=== PATIENT | female | born 1985 | race African-American/Black ===

== ENCOUNTER 2021-06-02 05:47 | Emergency (ER) | payer MEDICAID ==
[~2021-06-02] VITALS: Ht 144.8 cm; Wt 75.0 kg
[~2021-06-02 05:47] MED LIST: CLON-595 PO; DIVA125T32 PO; OXYC-490 PO; PARO10TA89 PO; PHEN20EL7 PO; RISP0.252 PO
[2021-06-02] MEDS ORDERED: PHENOBARBITAL 30 MG/7.5 ML PO ONE (07:30)
[2021-06-02] MEDS ORDERED: CEPHALEXIN MONOHYDRATE 250 MG/5 ML SUSPENSION ORAL.SYG PO ONE (07:30)
[2021-06-02] MEDS ORDERED: CEPH250S56 PO (07:31)
[2021-06-02] MEDS ORDERED: OXYC-708 PO (07:34)
[2021-06-02 08:04] VITALS: BP 151/98
== END 2021-06-02 08:13 | disposition home or self-care (01) ==
LOC: EMS 05:49
DX: R45.1 Restlessness and agitation (principal); F84.0 Autistic disorder; N39.0 Urinary tract infection, site not specified; Z86.69 Personal history of other diseases of the nervous system and sense organs; Z88.0 Allergy status to penicillin; Z88.1 Allergy status to other antibiotic agents
CPT/HCPCS: 99283

== ENCOUNTER 2022-06-24 18:38 | Emergency (ER) | payer OTHER ==
[~2022-06-24] VITALS: Ht 144.8 cm; Wt 62.7 kg
[~2022-06-24 18:38] MED LIST changes: +CEPH250S56 PO; +OXYC-708 PO
[2022-06-24] MEDS ORDERED: PANT-31 PO (18:52)
[2022-06-24] MEDS ORDERED: KETOROLAC TROMETHAMINE 30 MG/ML VIAL IM ONE (19:30)
[2022-06-24] MEDS ORDERED: PHEN20EL10 PO (19:36)
[2022-06-24] MEDS ORDERED: MIDAZOLAM HCL 2 MG/2 ML VIAL IM ONE (20:15)
[2022-06-24] MEDS ORDERED: MIDAZOLAM HCL 5 MG/ML VIAL IM ONE (21:00)
[2022-06-24 23:01] LABS: BASOPHILS % (AUTO) 0.2 % (0.0-2.0); EOSINOPHILS % (AUTO) 4.4 % (1.0-6.0); HEMATOCRIT 26.2 % (36-46); HEMOGLOBIN 7.9 g/dL (12.0-16.0); LYMPHOCYTES # (AUTO) 1.8 K/uL (1.0-4.8); LYMPHOCYTES % (AUTO) 25.4 % (22.0-44.0); MEAN CORPUSCULAR HEMOGLOBIN 22.7 pg (26.0-34.0); MEAN CORPUSCULAR HGB CONC 30.3 G/dL (31.0-37.0); MEAN CORPUSCULAR VOLUME 75 fL (80-100); MONOCYTES # (AUTO) 0.4 K/uL (0.1-1.0); MONOCYTES % (AUTO) 6.1 % (2.0-9.0); NEUTROPHILS # (AUTO) 4.6 K/uL (1.8-7.7); NEUTROPHILS % (AUTO) 63.9 % (40.0-70.0); PLATELET COUNT (AUTO) 277 K/uL (150-450); RED CELL DISTRIBUTION WIDTH 19.7 % (11.5-14.5)
[2022-06-24 23:10] LABS: ANION GAP 9 mmol/L (8-16); CALCIUM, TOTAL 8.7 mg/dL (8.8-10.5); CARBON DIOXIDE 26 mmol/L (22-29); CHLORIDE 101 mmol/L (98-107); CREATININE 0.59 mg/dL (0.60-1.30); GLOMERULAR FILTR. RATE CALC > 60 mL/min (>60); GLUCOSE,RANDOM 102 mg/dL (70-110); POTASSIUM 3.3 mmol/L (3.5-5.1); SODIUM SERUM 136 mmol/L (136-145)
[2022-06-24 23:16] LABS: ALANINE AMINOTRANSFERASE 17 U/L (12-78); ALBUMIN 3.1 g/dL (3.4-5.0); ALKALINE PHOSPHATASE 220 U/L (46-116); ASPARTATE AMINOTRANSFERASE 19 U/L (15-37); BILIRUBIN,TOTAL 0.2 mg/dL (0.1-1.0); LIPASE 76 U/L (73-393); TOTAL PROTEIN, SERUM 7.7 g/dL (6.4-8.2)
[2022-06-25 00:07] VITALS: BP 0/0
== END 2022-06-25 00:07 | disposition home or self-care (01) ==
LOC: EMS 18:39
DX: N83.202 Unspecified ovarian cyst, left side (principal); D64.9 Anemia, unspecified; D25.9 Leiomyoma of uterus, unspecified; F84.0 Autistic disorder; Z98.890 Other specified postprocedural states; Z88.0 Allergy status to penicillin; Z88.1 Allergy status to other antibiotic agents; Z88.8 Allergy status to other drugs, medicaments and biological substances
CPT/HCPCS: 99285; 76856; 80053; 80184; 83690; 85025; 86850; 86900; 86901; 36415; 74022; 96372; J1885; J2250 ×2

== ENCOUNTER 2022-09-03 06:37 | Emergency (ER) | payer OTHER ==
[~2022-09-03] VITALS: Ht 144.8 cm; Wt 63.6 kg
[~2022-09-03 06:37] MED LIST changes: -CEPH250S56 PO; -DIVA125T32 PO; -OXYC-490 PO; -OXYC-708 PO; +PANT-31 PO; -PARO10TA89 PO; +PHEN20EL24 PO; -PHEN20EL7 PO; -RISP0.252 PO
[2022-09-03 06:51] VITALS: TEMP 98.2
[2022-09-03 10:06] LABS: BASOPHILS % (AUTO) 0.4 % (0.0-2.0); EOSINOPHILS % (AUTO) 2.4 % (1.0-6.0); HEMATOCRIT 37.7 % (36-46); HEMOGLOBIN 11.4 g/dL (12.0-16.0); LYMPHOCYTES # (AUTO) 3.6 K/uL (1.0-4.8); LYMPHOCYTES % (AUTO) 34.2 % (22.0-44.0); MEAN CORPUSCULAR HEMOGLOBIN 26.1 pg (26.0-34.0); MEAN CORPUSCULAR HGB CONC 30.3 G/dL (31.0-37.0); MEAN CORPUSCULAR VOLUME 86 fL (80-100); MONOCYTES # (AUTO) 0.7 K/uL (0.1-1.0); MONOCYTES % (AUTO) 6.2 % (2.0-9.0); NEUTROPHILS % (AUTO) 56.8 % (40.0-70.0); PLATELET COUNT (AUTO) 299 K/uL (150-450); RED BLOOD CELL COUNT(AUTO) 4.37 MIL/uL (4.00-5.20); RED CELL DISTRIBUTION WIDTH 28.8 % (11.5-14.5)
[2022-09-03 10:16] LABS: ANION GAP 16 mmol/L (8-16); CALCIUM, TOTAL 9.1 mg/dL (8.8-10.5); CARBON DIOXIDE 25 mmol/L (22-29); CHLORIDE 100 mmol/L (98-107); CREATININE 0.77 mg/dL (0.60-1.30); GLOMERULAR FILTR. RATE CALC > 60 mL/min (>60); GLUCOSE,RANDOM 103 mg/dL (70-110); POTASSIUM 4.9 mmol/L (3.5-5.1); SODIUM SERUM 141 mmol/L (136-145)
[2022-09-03 10:21] LABS: ALANINE AMINOTRANSFERASE 19 U/L (12-78); ALBUMIN 3.6 g/dL (3.4-5.0); ALKALINE PHOSPHATASE 244 U/L (46-116); ASPARTATE AMINOTRANSFERASE 30 U/L (15-37); BILIRUBIN,TOTAL 0.1 mg/dL (0.1-1.0); TOTAL PROTEIN, SERUM 8.3 g/dL (6.4-8.2)
[2022-09-03] MEDS ORDERED: DIPHENOXYLATE/ATROP 2.5-0.025 MG/5 ML ORAL.SYG LIQUID PO ONE (11:00)
[2022-09-03] MEDS ORDERED: GENTAMICIN SULFATE 0.3% OPHTHALMIC SOLUTION 5 ML OU ONE (11:00)
[2022-09-03 11:21] VITALS: BP 112/61; PULSE 92; RESP 20
== END 2022-09-03 11:24 | disposition home or self-care (01) ==
LOC: EMS 06:38
DX: N93.9 Abnormal uterine and vaginal bleeding, unspecified (principal); H10.9 Unspecified conjunctivitis; R19.7 Diarrhea, unspecified; F84.0 Autistic disorder; Z90.721 Acquired absence of ovaries, unilateral; Z98.890 Other specified postprocedural states; Z88.0 Allergy status to penicillin; Z88.1 Allergy status to other antibiotic agents
CPT/HCPCS: 80053; 85025; 99283

== ENCOUNTER 2022-10-18 05:01 | Emergency (ER) | payer OTHER ==
[~2022-10-18] VITALS: Ht 144.8 cm; Wt 63.6 kg
[2022-10-18 05:56] LABS: BASOPHILS % (AUTO) 0.4 % (0.0-2.0); EOSINOPHILS % (AUTO) 1.9 % (1.0-6.0); HEMOGLOBIN 12.8 g/dL (12.0-16.0); LYMPHOCYTES # (AUTO) 2.3 K/uL (1.0-4.8); LYMPHOCYTES % (AUTO) 24.6 % (22.0-44.0); MEAN CORPUSCULAR HGB CONC 32.8 G/dL (31.0-37.0); MEAN CORPUSCULAR VOLUME 92 fL (80-100); MONOCYTES # (AUTO) 0.5 K/uL (0.1-1.0); MONOCYTES % (AUTO) 5.5 % (2.0-9.0); NEUTROPHILS # (AUTO) 6.4 K/uL (1.8-7.7); NEUTROPHILS % (AUTO) 67.6 % (40.0-70.0); PLATELET COUNT (AUTO) 216 K/uL (150-450); RED BLOOD CELL COUNT(AUTO) 4.26 MIL/uL (4.00-5.20); RED CELL DISTRIBUTION WIDTH 17.7 % (11.5-14.5); WHITE BLOOD COUNT (AUTO) 9.4 K/uL (4.5-11.0)
[2022-10-18 06:07] LABS: ANION GAP 11 mmol/L (8-16); CARBON DIOXIDE 25 mmol/L (22-29); CHLORIDE 104 mmol/L (98-107); CREATININE 0.53 mg/dL (0.60-1.30); GLOMERULAR FILTR. RATE CALC > 60 mL/min (>60); GLUCOSE,RANDOM 94 mg/dL (70-110); POTASSIUM 3.7 mmol/L (3.5-5.1); SODIUM SERUM 140 mmol/L (136-145); UREA NITROGEN, BLOOD 12 mg/dL (7-18)
[2022-10-18 06:12] LABS: ALANINE AMINOTRANSFERASE 18 U/L (12-78); ALBUMIN 3.4 g/dL (3.4-5.0); ALKALINE PHOSPHATASE 265 U/L (46-116); ASPARTATE AMINOTRANSFERASE 23 U/L (15-37); BILIRUBIN,TOTAL 0.1 mg/dL (0.1-1.0); TOTAL PROTEIN, SERUM 7.9 g/dL (6.4-8.2)
[2022-10-18 06:17] LABS: RBC MORPHOLOGY COMMENT ABNORMAL RBC MORPH
[2022-10-18] MEDS ORDERED: LORazepam 2 MG/ML VIAL IM ONE ×2 (06:45→08:00)
[2022-10-18 08:15] VITALS: BP 160/99; PULSE 74; RESP 18
== END 2022-10-18 08:39 | disposition home or self-care (01) ==
LOC: EMS 05:03
DX: S59.902A Unspecified injury of left elbow, initial encounter (principal); N93.8 Other specified abnormal uterine and vaginal bleeding; F84.0 Autistic disorder; R45.1 Restlessness and agitation; R26.81 Unsteadiness on feet; Z98.890 Other specified postprocedural states; Z88.0 Allergy status to penicillin; Z88.1 Allergy status to other antibiotic agents; Z88.8 Allergy status to other drugs, medicaments and biological substances; X58.XXXA Exposure to other specified factors, initial encounter; Y93.89 Activity, other specified; Y92.89 Other specified places as the place of occurrence of the external cause; Y99.8 Other external cause status
CPT/HCPCS: 99285; 70450; 80053; 84703; 85025; 36415; 73080; 96372; J2060

== ENCOUNTER 2023-02-01 21:30 | Emergency (ER) | payer OTHER ==
[2023-02-02] MEDS ORDERED: MORP10SO3 PO (05:24)
== END 2023-02-02 00:23 | disposition left against medical advice (07) ==
LOC: EMS 21:32
DX: R56.9 Unspecified convulsions (principal); Z53.21 Procedure and treatment not carried out due to patient leaving prior to being seen by health care provider
CPT/HCPCS: 99281; Z7502

== ENCOUNTER 2023-02-02 05:10 | Emergency (ER) | payer OTHER ==
[2023-02-02] MEDS ORDERED: MORP10SO3 PO (05:24)
[2023-02-02] MEDS ORDERED: MORPHINE SULFATE 4 MG/ML SYRINGE IM ONE (09:30)
[2023-02-02] MEDS ORDERED: LORazepam 2 MG/ML VIAL IM ONE (09:30)
[2023-02-02 11:17] LABS: BASOPHILS % (AUTO) 0.3 % (0.0-2.0); EOSINOPHILS % (AUTO) 1.7 % (1.0-6.0); HEMATOCRIT 34.1 % (36-46); HEMOGLOBIN 11.3 g/dL (12.0-16.0); LYMPHOCYTES # (AUTO) 1.8 K/uL (1.0-4.8); LYMPHOCYTES % (AUTO) 26.4 % (22.0-44.0); MEAN CORPUSCULAR HEMOGLOBIN 31.1 pg (26.0-34.0); MEAN CORPUSCULAR HGB CONC 33.1 G/dL (31.0-37.0); MEAN CORPUSCULAR VOLUME 94 fL (80-100); MONOCYTES # (AUTO) 0.4 K/uL (0.1-1.0); NEUTROPHILS # (AUTO) 4.5 K/uL (1.8-7.7); NEUTROPHILS % (AUTO) 65.6 % (40.0-70.0); PLATELET COUNT (AUTO) 224 K/uL (150-450); RED BLOOD CELL COUNT(AUTO) 3.62 MIL/uL (4.00-5.20); RED CELL DISTRIBUTION WIDTH 14.1 % (11.5-14.5); WHITE BLOOD COUNT (AUTO) 6.9 K/uL (4.5-11.0)
[2023-02-02 11:29] LABS: ANION GAP 8 mmol/L (8-16); CALCIUM, TOTAL 8.9 mg/dL (8.8-10.5); CARBON DIOXIDE 26 mmol/L (22-29); CHLORIDE 107 mmol/L (98-107); CREATININE 0.51 mg/dL (0.60-1.30); GLOMERULAR FILTR. RATE CALC > 60 mL/min (>60); GLUCOSE,RANDOM 91 mg/dL (70-110); POTASSIUM 4.7 mmol/L (3.5-5.1); SODIUM SERUM 141 mmol/L (136-145); UREA NITROGEN, BLOOD 8 mg/dL (7-18)
[2023-02-02 11:42] LABS: ALCOHOL, BLOOD (SERUM) < 3 mg/dL (0-10)
[2023-02-02 11:43] LABS: ALANINE AMINOTRANSFERASE 97 U/L (12-78); ALBUMIN 3.4 g/dL (3.4-5.0); ALKALINE PHOSPHATASE 268 U/L (46-116); ASPARTATE AMINOTRANSFERASE 32 U/L (15-37); BILIRUBIN,TOTAL 0.1 mg/dL (0.1-1.0); TOTAL PROTEIN, SERUM 7.7 g/dL (6.4-8.2)
[2023-02-02] MEDS ORDERED: PB/HYOSCY/ATR/SCOP/LIDO/MAALOX 55 ML BOTTLE PO ONE (14:00)
== END 2023-02-02 14:38 | disposition home or self-care (01) ==
LOC: EMS 05:12
DX: K29.70 Gastritis, unspecified, without bleeding (principal); B96.89 Other specified bacterial agents as the cause of diseases classified elsewhere; Z90.721 Acquired absence of ovaries, unilateral; Z98.890 Other specified postprocedural states; Z88.0 Allergy status to penicillin; Z88.1 Allergy status to other antibiotic agents; Z88.8 Allergy status to other drugs, medicaments and biological substances
CPT/HCPCS: 99285; 76856; 80053; 85025; 74018; 96372; G0480; J2060; J2270

== ENCOUNTER 2023-02-05 06:30 | Emergency (ER) | payer MEDICAID, OTHER ==
[~2023-02-05] VITALS: Ht 144.8 cm; Wt 61.4 kg
[~2023-02-05 06:30] MED LIST changes: +MORP10SO3 PO
[2023-02-05] MEDS ORDERED: SUCRALFATE 1 GM/10 ML SUSPENSION UDCUP PO ONE (09:45)
[2023-02-05] MEDS ORDERED: DiphenhydrAMINE HCL 50 MG/ML VIAL IM ONE (09:45)
[2023-02-05] MEDS ORDERED: LIDOCAINE/PF 1% 2 ML VIAL IM ONE (09:45)
[2023-02-05] MEDS ORDERED: CefTRIAXone SODIUM 1 GM/VIAL IM ONE (09:45)
[2023-02-05] MEDS ORDERED: BACITRACIN 0.9 GM PACKET OINTMENT TP ONE (10:15)
[2023-02-05 10:57] VITALS: BP 122/56; PULSE 94; RESP 17
== END 2023-02-05 11:02 | disposition home or self-care (01) ==
LOC: EMS 06:31
DX: R10.13 Epigastric pain (principal); Z90.721 Acquired absence of ovaries, unilateral; Z98.890 Other specified postprocedural states; Z88.0 Allergy status to penicillin; Z88.1 Allergy status to other antibiotic agents; Z88.8 Allergy status to other drugs, medicaments and biological substances
CPT/HCPCS: 99284; 71045; 96372; J0696; J1200; J3490

== ENCOUNTER 2023-06-08 03:29 | Emergency (ER) | payer OTHER ==
[~2023-06-08] VITALS: Ht 144.8 cm; Wt 65.0 kg
[2023-06-08] MEDS: SODIUM CHLORIDE 0.9% 1,000 ML IV ONE (07:22)
[2023-06-08 07:27] LABS: BASOPHILS % (AUTO) 0.3 % (0.0-2.0); EOSINOPHILS % (AUTO) 2.1 % (1.0-6.0); HEMATOCRIT 32.1 % (36-46); HEMOGLOBIN 10.5 g/dL (12.0-16.0); LYMPHOCYTES # (AUTO) 2.4 K/uL (1.0-4.8); MEAN CORPUSCULAR HEMOGLOBIN 28.5 pg (26.0-34.0); MEAN CORPUSCULAR HGB CONC 32.8 G/dL (31.0-37.0); MEAN CORPUSCULAR VOLUME 87 fL (80-100); MONOCYTES # (AUTO) 0.5 K/uL (0.1-1.0); MONOCYTES % (AUTO) 6.5 % (2.0-9.0); NEUTROPHILS # (AUTO) 5.2 K/uL (1.8-7.7); NEUTROPHILS % (AUTO) 62.1 % (40.0-70.0); PLATELET COUNT (AUTO) 283 K/uL (150-450); RED CELL DISTRIBUTION WIDTH 13.4 % (11.5-14.5); WHITE BLOOD COUNT (AUTO) 8.3 K/uL (4.5-11.0)
[2023-06-08 07:32] LABS: ANION GAP 10 mmol/L (8-16); CALCIUM, TOTAL 8.7 mg/dL (8.8-10.5); CARBON DIOXIDE 25 mmol/L (22-29); CHLORIDE 103 mmol/L (98-107); CREATININE 0.64 mg/dL (0.60-1.30); GLOMERULAR FILTR. RATE CALC > 60 mL/min (>60); GLUCOSE,RANDOM 100 mg/dL (70-110); POTASSIUM 4.3 mmol/L (3.5-5.1); SODIUM SERUM 138 mmol/L (136-145); UREA NITROGEN, BLOOD 12 mg/dL (7-18)
[2023-06-08] MEDS: DiphenhydrAMINE HCL 50 MG/ML VIAL IVP ONE (07:40)
[2023-06-08] MEDS: MORPHINE SULFATE 2 MG/ML SYRINGE IVP ONE (07:41)
[2023-06-08 07:42] LABS: APPEARANCE,URINE CLEAR (CLEAR); BILIRUBIN,URINE NEGATIVE (NEGATIVE); COLOR,URINE LIGHT YELLOW (YELLOW); GLUCOSE, URINE (UA) NEGATIVE (NEGATIVE); KETONES,URINE NEGATIVE (NEGATIVE); LEUKOCYTE ESTERASE ,URINE NEGATIVE (NEGATIVE); NITRATE,URINE NEGATIVE (NEGATIVE); OCCULT BLOOD,URINE NEGATIVE (NEGATIVE); PROTEIN,URINE NEGATIVE (NEGATIVE); SPECIFIC GRAVITIY, URINE 1.019 (1.003-1.030); UROBILINOGEN,URINE <=1.0 mg/dL (<=1.0)
[2023-06-08 07:47] LABS: ALCOHOL, URINE DRUG SCREEN NEGATIVE (NEGATIVE); AMPHET/METH SCREEN,URINE NEGATIVE (NEGATIVE); BARBITURATE SCREEN, URINE POSITIVE (NEGATIVE); BENZODIAZEPINES SCREEN,URINE NEGATIVE (NEGATIVE); CANNABINOID SCREEN,URINE NEGATIVE (NEGATIVE); COCAINE SCREEN,URINE NEGATIVE (NEGATIVE); METHADONE SCREEN, URINE NEGATIVE (NEGATIVE); OPIATE SCREEN,URINE NEGATIVE (NEGATIVE); PHENCYCLIDINE SCREEN,URINE NEGATIVE (NEGATIVE)
[2023-06-08 07:59] LABS: ALANINE AMINOTRANSFERASE 23 U/L (12-78); ALBUMIN 3.4 g/dL (3.4-5.0); ALKALINE PHOSPHATASE 256 U/L (46-116); ASPARTATE AMINOTRANSFERASE 23 U/L (15-37); CREATINE KINASE, TOTAL ONLY 121 U/L (26-192); TOTAL PROTEIN, SERUM 7.9 g/dL (6.4-8.2)
[2023-06-08 08:00] LABS: BILIRUBIN,TOTAL 0.1 mg/dL (0.1-1.0)
[2023-06-08 08:39] VITALS: BP 122/77; PULSE 100; RESP 22; TEMP 97.6
== END 2023-06-08 09:21 | disposition home or self-care (01) ==
LOC: EMS 03:30
DX: R45.1 Restlessness and agitation (principal); F84.0 Autistic disorder; R62.50 Unspecified lack of expected normal physiological development in childhood; K59.00 Constipation, unspecified; D64.9 Anemia, unspecified; R56.9 Unspecified convulsions; J18.9 Pneumonia, unspecified organism; Z88.0 Allergy status to penicillin; Z88.1 Allergy status to other antibiotic agents
CPT/HCPCS: 99284; 96374; 96361; 96375; 80053; 80184; 81003; 82550; 85025; 36415; 80307; J1200; J2270; 51701

== ENCOUNTER 2024-05-30 05:59 | Emergency (ER) | payer OTHER ==
[~2024-05-30] VITALS: Ht 144.8 cm; Wt 65.6 kg
[2024-05-30 06:21] VITALS: TEMP 98.2
[2024-05-30 06:59] LABS: BASOPHILS % (AUTO) 0.2 % (0.0-2.0); EOSINOPHILS % (AUTO) 0.8 % (1.0-6.0); HEMATOCRIT 32.1 % (36-46); HEMOGLOBIN 10.2 g/dL (12.0-16.0); LYMPHOCYTES # (AUTO) 1.6 K/uL (1.0-4.8); LYMPHOCYTES % (AUTO) 24.9 % (22.0-44.0); MEAN CORPUSCULAR HEMOGLOBIN 28.1 pg (26.0-34.0); MEAN CORPUSCULAR HGB CONC 31.9 G/dL (31.0-37.0); MEAN CORPUSCULAR VOLUME 88 fL (80-100); MONOCYTES # (AUTO) 0.7 K/uL (0.1-1.0); MONOCYTES % (AUTO) 10.5 % (2.0-9.0); NEUTROPHILS # (AUTO) 4.2 K/uL (1.8-7.7); NEUTROPHILS % (AUTO) 63.6 % (40.0-70.0); PLATELET COUNT (AUTO) 277 K/uL (150-450); RED BLOOD CELL COUNT(AUTO) 3.63 MIL/uL (4.00-5.20); RED CELL DISTRIBUTION WIDTH 15.8 % (11.5-14.5); WHITE BLOOD COUNT (AUTO) 6.6 K/uL (4.5-11.0)
[2024-05-30 07:09] LABS: ANION GAP 8 mmol/L (8-16); CARBON DIOXIDE 28 mmol/L (22-29); CHLORIDE 105 mmol/L (98-107); CREATININE 0.56 mg/dL (0.60-1.30); GLOMERULAR FILTR. RATE CALC > 60 mL/min (>60); GLUCOSE,RANDOM 97 mg/dL (70-110); POTASSIUM 3.8 mmol/L (3.5-5.1); SODIUM SERUM 141 mmol/L (136-145); UREA NITROGEN, BLOOD 9 mg/dL (7-18)
[2024-05-30 07:20] LABS: CALCIUM, TOTAL 8.7 mg/dL (8.8-10.5); TROPONIN I-HIGH SENSITIVITY Less Than 4 ng/L (<51)
[2024-05-30] MEDS: ClonazePAM 0.5 MG TABLET PO ONE (07:54)
[2024-05-30 08:08] LABS: APPEARANCE,URINE CLEAR (CLEAR); BILIRUBIN,URINE NEGATIVE (NEGATIVE); COLOR,URINE YELLOW (YELLOW); GLUCOSE, URINE (UA) NEGATIVE (NEGATIVE); KETONES,URINE NEGATIVE (NEGATIVE); LEUKOCYTE ESTERASE ,URINE TRACE (NEGATIVE); NITRATE,URINE NEGATIVE (NEGATIVE); OCCULT BLOOD,URINE NEGATIVE (NEGATIVE); PH,URINE 6.5 (5.0-8.0); PROTEIN,URINE TRACE mg/dL (NEGATIVE); SPECIFIC GRAVITIY, URINE 1.028 (1.003-1.030); UROBILINOGEN,URINE <=1.0 mg/dL (<=1.0)
[2024-05-30 08:15] LABS: BACTERIA,URINE None Seen /HPF (None Seen); RBC,URINE None Seen /HPF (0-2); SQUAMOUS EPITHELIAL CELL,UR Many /LPF (None Seen); WBC,URINE 0-2 /HPF (0-5)
[2024-05-30 08:34] VITALS: BP 122/89; PULSE 88; RESP 20; O2SAT 100
== END 2024-05-30 09:11 | disposition home or self-care (01) ==
LOC: EMS 05:59
DX: R00.0 Tachycardia, unspecified (principal); F84.0 Autistic disorder; Z88.0 Allergy status to penicillin; Z88.1 Allergy status to other antibiotic agents; Z90.721 Acquired absence of ovaries, unilateral; Z87.19 Personal history of other diseases of the digestive system; Z79.899 Other long term (current) drug therapy
CPT/HCPCS: 71045; 80048; 81001; 84484; 85025; 93005; 99285; 36415-L1; 36415-TC

== ENCOUNTER → 2024-08-23 | Emergency (ER) | payer OTHER ==
[~2024-08-23] VITALS: Ht 144.8 cm; Wt 63.6 kg
[2024-08-23 03:18] VITALS: BP 0/0; PULSE 105; RESP 20; O2SAT 100
== END | disposition still patient (30) ==
LOC: EMS 03:00
DX: J18.9 Pneumonia, unspecified organism (principal); Z53.21 Procedure and treatment not carried out due to patient leaving prior to being seen by health care provider

== ENCOUNTER 2024-08-27 16:42 | Emergency (ER) | payer OTHER ==
[~2024-08-27] VITALS: Ht 144.8 cm; Wt 63.6 kg
[2024-08-27 16:48] VITALS: TEMP 98.4
[2024-08-27] MEDS ORDERED: ACET-66 PO (16:48)
[2024-08-27] MEDS ORDERED: GABA-1181 PO (16:48)
[2024-08-27] MEDS ORDERED: OXYC1TAB6 PO (16:48)
[2024-08-27] MEDS: LORazepam 2 MG/ML VIAL IM ONE (17:20)
[2024-08-27] MEDS: ZIPRASIDONE MESYLATE 20 MG/VIAL IM ONE (17:20)
[2024-08-27 18:19] LABS: PLATELET COUNT (AUTO) 261 K/uL (150-450); RED BLOOD CELL COUNT(AUTO) 3.87 MIL/uL (4.00-5.20); RED CELL DISTRIBUTION WIDTH 15.4 % (11.5-14.5); WHITE BLOOD COUNT (AUTO) 7.9 K/uL (4.5-11.0)
[2024-08-27 18:26] LABS: CREATININE 0.73 mg/dL (0.60-1.30); GLUCOSE,RANDOM 81 mg/dL (70-110); SODIUM SERUM 141 mmol/L (136-145); UREA NITROGEN, BLOOD 10 mg/dL (7-18)
[2024-08-27 18:27] LABS: CALCIUM, TOTAL 8.2 mg/dL (8.8-10.5); GLOMERULAR FILTR. RATE CALC > 60 mL/min (>60)
[2024-08-27 18:27] LABS: APPEARANCE,URINE CLEAR (CLEAR); GLUCOSE, URINE (UA) NEGATIVE (NEGATIVE); LEUKOCYTE ESTERASE ,URINE NEGATIVE (NEGATIVE); NITRATE,URINE NEGATIVE (NEGATIVE); OCCULT BLOOD,URINE TRACE (NEGATIVE); PH,URINE DRUG SCREEN 5.5 (5.0-8.0); SPECIFIC GRAVITIY, URINE 1.025 (1.003-1.030)
[2024-08-27 18:33] LABS: LACTIC ACID 1.7 mmol/L (0.4-2.0)
[2024-08-27 18:41] LABS: SQUAMOUS EPITHELIAL CELL,UR Few /LPF (None Seen)
[2024-08-27 18:42] LABS: CREATINE KINASE, TOTAL ONLY 190 U/L (26-192)
[2024-08-27 18:51] LABS: ALCOHOL, URINE DRUG SCREEN NEGATIVE (NEGATIVE); AMPHET/METH SCREEN,URINE NEGATIVE (NEGATIVE); BARBITURATE SCREEN, URINE POSITIVE (NEGATIVE); CANNABINOID SCREEN,URINE NEGATIVE (NEGATIVE); COCAINE SCREEN,URINE NEGATIVE (NEGATIVE); METHADONE SCREEN, URINE NEGATIVE (NEGATIVE)
[2024-08-27 19:30] VITALS: O2SAT 97
[2024-08-27] MEDS: MIDAZOLAM HCL 5 MG/ML VIAL IVP ONE ×2 (19:30→19:51)
[2024-08-27 23:32] VITALS: BP 110/74; PULSE 104; RESP 19; O2SAT 100
== END 2024-08-27 23:57 | disposition home or self-care (01) ==
LOC: EMS 16:42
DX: F84.0 Autistic disorder (principal); B37.31 Acute candidiasis of vulva and vagina; F88 Other disorders of psychological development; G40.909 Epilepsy, unspecified, not intractable, without status epilepticus; Z87.19 Personal history of other diseases of the digestive system; Z90.721 Acquired absence of ovaries, unilateral; Z90.49 Acquired absence of other specified parts of digestive tract; Z88.1 Allergy status to other antibiotic agents; Z88.0 Allergy status to penicillin; Z79.899 Other long term (current) drug therapy
CPT/HCPCS: 99291; 74176; 71045; 80048; 81001; 82550; 83605; 83690; 85025; 36415; 51701; 99152; 80307; 96372; J1200; J2060; J2250; J3486; 96374